=== PATIENT | female | born 1940 | race Caucasian/White ===

== ENCOUNTER 2021-09-22 11:22 | Emergency (ER) | payer OTHER, SELFPAY ==
[2021-09-22 11:29] VITALS: BP 140/67; PULSE 83; RESP 15; TEMP 36.7; O2SAT 99; BMI 28.8
[2021-09-22 14:08] VITALS: PULSE 78; RESP 18; TEMP 36.8; O2SAT 98
--- NOTE | 2021-09-22 20:12 | ED_ITS ---
HPI - Dental/Oral <LINNEA Cheung - Last Filed: 09/22/21 20:20> General Chief complaint: Dental/Oral Stated complaint: Bleeding from mouth- cause unkown Time Seen by Provider: 09/22/21 13:33 Source: patient Mode of arrival: Wheelchair History of Present Illness HPI Narrative: This is a pleasant 81-year-old female with dental implants who presents to the emergency department complaining of bleeding from her gums on the bottom front aspect right where it meets her implant. She denies any known trauma, states she was brushing her teeth, then it started bleeding afterwards. She denies any anticoagulant use, states she is allergic to clindamycin, penicillins, sulfa, and ciprofloxacin. She states they tried to go to [facility] in [place] but they told her to go to the emergency department since she had bleeding. Patient denies any illness symptoms recently, any oral swelling, any pain or sores in her mouth and she denies. Related Data Home Medications Medication Instructions Recorded Confirmed enalapril maleate 20 mg tablet 20 mg PO DAILY 07/27/21 07/27/21 insulin aspart U-100 100 unit/mL 1 sliding scale dose SUBCUT 07/27/21 07/27/21 subcutaneous solution (Novolog USEASDIRECTD U-100 Insulin aspart) levothyroxine 125 mcg capsule 125 mcg PO DAILY 07/27/21 07/27/21 metformin 500 mg tablet 500 mg PO BID 07/27/21 07/27/21 omeprazole 10 mg capsule,delayed 10 mg PO DAILY 07/27/21 07/27/21 release Previous Rx's Medication Instructions Recorded chlorhexidine gluconate 0.12 % 15 ml MUCOUS MEMBRANE BID 5 Days 09/22/21 mouthwash #118 ml Allergies Allergy/AdvReac Type Severity Reaction Status Date / Time clindamycin Allergy Severe Nausea Verified 09/22/21 11:29 Penicillins Allergy Severe Hallucinati Verified 09/22/21 11:29 on Sulfa (Sulfonamide Allergy Severe Nausea Verified 09/22/21 11:29 Antibiotics) ciprofloxacin [From Cipro] Allergy Intermediate Nausea Verified 09/22/21 11:29 Review of Systems <LINNEA Cheung - Last Filed: 09/22/21 20:20> Review of Systems Narrative: General: denies fever, chills, malaise, sweats, fatigue Head/Neck: denies headache, neck pain, dizziness Mouth: Denies any foul odor in her mouth, no other open sores, states the bleeding started and she did know how to stop it after she brushed her teeth today, she has a history of dental implants and has not had any problems with them Eyes: denies visual changes, eye pain Cardio: denies chest pain, palpitations, edema Respiratory: denies dyspnea, cough, orthopnea MSK: denies joint pain, muscle weakness Skin: denies rash, itching, skin lesions or other Neuro: denies numbness, tingling Patient History <LINNEA Cheung - Last Filed: 09/22/21 20:20> Social History Smoking Status: Never smoker Smoking Status: Never smoker alcohol intake frequency: holidays/special occasions only Substance Use Type: does not use Exam <LINNEA Cheung - Last Filed: 09/22/21 20:20> Narrative Exam Narrative: Independently reviewed vitals signs and nursing notes. General: cooperative, comfortable, in no acute distress, well developed and well groomed Head: atraumatic, symmetrical facial expressions Mouth: Dental implants, no open wounds,, gum tissue on lower front mandible appears mildly irritated and has a very very small amount of oozing. No open wound is visible, no absence, no fluctuance, no other open sores Neck: supple, atraumatic, without lymphadenopathy. Eyes: pupils equal round and reactive, EOMI, conjunctiva normal Nose: nares patent, no rhinorrhea Mouth/Throat: uvula midline, moist mucus membranes Respiratory: normal effort, able to speak in complete sentences, no audible wheezing, stridor, or rales. No retractions or tachypnea. MSK: moves all extremities, ambulatory w/steady gait, neurovascularly intact, no weakness Skin: brisk capillary refill, no rash, no erythema Neuro: normal speech and cognition, A&O x3, normal tone Psych: mental status is grossly normal, congruent mood, normal affect, pleasant and cooperative Initial Vital Signs Initial Vital Signs: Vital Signs Temperature 98.1 F 09/22/21 11:29 Pulse Rate 83 09/22/21 11:29 Respiratory Rate 15 09/22/21 11:29 Blood Pressure 140/67 09/22/21 11:29 Pulse Oximetry 99 09/22/21 11:29 <Laury Hagan DO - Last Filed: 09/23/21 07:57> Initial Vital Signs Initial Vital Signs: Vital Signs Temperature 98.1 F 09/22/21 11:29 Pulse Rate 83 09/22/21 11:29 Respiratory Rate 15 09/22/21 11:29 Blood Pressure 140/67 09/22/21 11:29 Pulse Oximetry 99 09/22/21 11:29 Course <LINNEA Cheung - Last Filed: 09/22/21 20:20> Vital Signs Vital signs: Vital Signs - 8 hr 09/22/21 14:08 Temperature 98.3 F Pulse Rate 78 Respiratory Rate 18 Pulse Oximetry 98 <Laury Hagan DO - Last Filed: 09/23/21 07:57> Vital Signs Vital signs: Vital Signs - 8 hr 09/22/21 14:08 Temperature 98.3 F Pulse Rate 78 Respiratory Rate 18 Pulse Oximetry 98 MDM - Dental/Oral <LINNEA Cheung - Last Filed: 09/22/21 20:20> MDM Narrative Medical decision making narrative: This is a pleasant 81-year-old female with history of dental implants, not on anticoagulants who presents to the emergency department for gingival bleeding which started after she was brushing her teeth this morning. On the lower jaw, front teeth, she has some mild bleeding from her gums, she had gauze packing in place held by her bottom lip, this reduce the bleeding to almost nothing. Patient was prescribed chlorhexidine oral rinse and was able to call [facility] to follow-up after her ER visit today for the bleeding. She will be evaluated by a dentist after today, this is most likely due bleeding due to gingivitis but could be related to her dental implants although they have been in for 2 years without any issue before. Patient is a diabetic but does not endorse any symptoms of infection. Opted to avoid antibiotics as patient states she only can have Levaquin for her oral antibiotic regimen due to her allergies. We deferred her antibiotic need to the dentist. Patient is appropriate and amenable to discharge home. Vital signs are stable on repeat examination is unremarkable. Patient has been informed of results. Patient has been given strict return to ER precautions for any new or worsening symptoms. Patient understands to follow up closely with outpatient providers as instructed. P atient understands plan and agrees to discharge home. All questions and concerns answered at this time. Discharge Plan Departure Patient Disposition: Home Clinical Impression: Bleeding gums Instructions: Gingivitis Activity Restrictions/Additional Instructions: *You have been diagnosed with gingival bleeding at the gumline that mucus your dental implants. Please follow-up with [facility] for a follow-up appointment. Due to your multiple allergies, we have avoided antibiotics at thi s time, you do not have symptoms of a systemic infection so this is likely still safe. Please use the chlorhexidine oral rinse to help prevent infection from further irritating the gum tissue. This may be drying, please continue your normal oral hygiene.. Which includes twice a day oral rinses, flossing, and brushing. If you develop symptoms of infection including fatigue, oral swelling, worsening pain, fever, or other symptom, it is time for oral antibiotics. *What to do: *Please continue to take your regular medications as directed. [x ] New medication prescriptions sent to your pharmacy: [[facility] ] [ ] New medication written as a paper prescription [ ] No new medications given *Please follow up with your primary care provider in 2-3 days, call for an appointment. Let them know you were seen in the Emergency Department and that we asked that you be seen for follow-up. We will electronically transmit a record of today's note if your PCP is in our system *If you do not have a primary care provider please contact [phone] to establish care with one of the [facility] primary care providers. *Return to Emergency Department if you should have any new, worsening or concerning symptoms, such as [fever greater than 101F, chills, worsening pain, persistent vomiting or other bothersome symptoms] Prescriptions: New chlorhexidine gluconate 0.12 % mouthwash 15 ml mucous membrane BID 5 Days Qty: 118 0RF No Action insulin aspart U-100 [Novolog U-100 Insulin aspart] 100 unit/mL solution 1 sliding scale dose SUBCUT USEASDIRECTD 0RF metformin 500 mg tablet 500 mg PO BID 0RF enalapril maleate 20 mg tablet 20 mg PO DAILY 0RF levothyroxine 125 mcg capsule 125 mcg PO DAILY 0RF omeprazole 10 mg capsule,delayed release(DR/EC) 10 mg PO DAILY 0RF Referrals: Shantel Graham MD [Primary Care Provider] - <Laury Hagan DO - Last Filed: 09/23/21 07:57> Cosign ED Attending [employer] Attestation: I was immediately available in the department for consultation. Documentation has been reviewed. I agree with assessment and plan.
== END 2021-09-22 14:09 | disposition home or self-care (01) ==
PROVIDERS: Emergency Provider Nurse Practitioner Critical Care Medicine; PCP Internal Medicine
DX: K06.8 Other specified disorders of gingiva and edentulous alveolar ridge (principal)
CPT/HCPCS: 99281